=== PATIENT | female | born 1955 | race Caucasian/White ===

== ENCOUNTER → 2018-09-18 | Outpatient (CLI) | payer OTHER ==
--- NOTE | 2018-09-18 13:30 | KCIC ---
EXAM: MRI RIGHT HIP DATE: 09/18/2018 12:30 PM CLINICAL INDICATION: Chronic right hip pain for several years COMPARISON: None. TECHNIQUE: Multiplanar multisequence MR imaging of the right hip was performed without IV contrast. FINDINGS: Bilateral coxa valga is incidentally seen. No significant right hip joint effusion. No trochanteric bursitis. Hip: Joint line: Chondral thinning, particularly anteriorly with regions of suspected near full-thickness thinning measuring 3 mm in AP dimension. Associated subchondral edema is seen. Labral survey: Irregularity and blunting of the anterior superior labrum likely chronic tearing/degeneration. Bone marrow: Mild marrow edema seen within the acetabulum. No evidence of fracture. Gluteus: Tendinous attachment of the gluteus musculature including medius within normal limits. Hamstrings:Tendinous attachment of the hamstrings intact. Iliopsoas: Tendinous attachment of the iliopsoas intact. Roya-articular soft tissues: Multiloculated cystic structure is seen arising from the anterior superior labrum measuring approximately 1.8 x 1.3 cm likely paralabral cyst. Limited survey of pelvis: Limited survey of the visceral contents of the pelvis within normal limit IMPRESSION: 1. 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 2. No evidence of fracture or AVN. Electronically signed by: Claude Leslie MD (09/18/2018 1:26 PM) [id number]
== END | disposition home or self-care (01) ==
LOC: KCIC MRI 12:10
PROVIDERS: ATTEND Family Medicine
DX: M94.251 Chondromalacia, right hip (principal); M85.68 Other cyst of bone, other site; R60.0 Localized edema; G89.29 Other chronic pain
CPT/HCPCS: 73721